=== PATIENT | male | born 1995 | race African-American/Black ===

== ENCOUNTER 2020-07-04 22:41 | Emergency (ER) | payer SELFPAY ==
[~2020-07-04] VITALS: Ht 170.2 cm; Wt 79.3 kg
[2020-07-04 23:03] VITALS: BP 156/100
--- NOTE | 2020-07-04 23:04 | PHYS DOC ---
General Adult EDM: Chief Complaint: shortness of air HPI: HPI: Patient is a 24-year-old male presented to ER today for evaluation of trouble breathing and wheezing. Patient also has nonproductive cough since yesterday. Patient has history of asthma, he is currently not on any medication. Patient denies any fever, no known exposure to anybody who tested positive for COVID-19 Review of Systems: Review of Systems: Constitutional: Denies fever or chills Eyes: Denies change in visual acuity HENT: Denies nasal congestion or sore throat Respiratory: Positive for cough and shortness of breath Cardiovascular: Denies chest pain or edema GI: Denies abdominal pain, nausea, vomiting, bloody stools or diarrhea : Denies dysuria Musculoskeletal: Denies back pain or joint pain Integument: Denies rash Neurologic: Denies headache, focal weakness or sensory changes Endocrine: Denies polyuria or polydipsia Lymphatic: Denies swollen glands Psychiatric: Denies depression or anxiety Heart Score: Risk Factors: Risk Factors: DM, Current or recent (<one month) smoker, HTN, HLP, family history of CAD, obesity. Risk Scores: Score 0 - 3: 2.5% MACE over next 6 weeks - Discharge Home Score 4 - 6: 20.3% MACE over next 6 weeks - Admit for Clinical Observation Score 7 - 10: 72.7% MACE over next 6 weeks - Early Invasive Strategies Current Medications: Current Meds: Current Medications Medications (Trade) Dose Ordered Sig/Poli Start Time Stop Time Status Last Admin Dose Admin Albuterol/ Ipratropium (Duoneb) 3 ml 1X ONCE 07/04/20 23:00 07/04/20 23:01 UNV Prednisone (Prednisone) 60 mg 1X ONCE 07/04/20 23:00 07/04/20 23:01 UNV Physical Exam: PE: Constitutional: Well developed, well nourished, no acute distress, non-toxic appearance. [] HENT: Normocephalic, atraumatic, bilateral external ears normal, oropharynx moist, no oral exudates, nose normal. [] Eyes: PERRLA, EOMI, conjunctiva normal, no discharge. [] Neck: Normal range of motion, no tenderness, supple, no stridor. [] Cardiovascular:Heart rate regular rhythm, no murmur [] Lungs & Thorax: Bilateral breath sounds with wheezing to auscultation, no respiratory distress. Abdomen: Bowel sounds normal, soft, no tenderness, no masses, no pulsatile masses. [] Skin: Warm, dry, no erythema, no rash. [] Back: No tenderness, no CVA tenderness. [] Extremities: No tenderness, no cyanosis, no clubbing, ROM intact, no edema. [] Neurologic: Alert and oriented X 3, normal motor function, normal sensory function, no focal deficits noted. [] Psychologic: Affect normal, judgement normal, mood normal. [] Current Patient Data: Labs: Current Medications Medications (Trade) Dose Ordered Sig/Poli Route PRN Reason Start Time Stop Time Status Last Admin Dose Admin Albuterol/ Ipratropium (Duoneb) 3 ml 1X ONCE NEB 07/04/20 23:30 07/04/20 23:31 DC 07/04/20 23:05 Prednisone (Prednisone) 60 mg 1X ONCE PO 07/04/20 23:30 07/04/20 23:31 DC 07/04/20 23:11 EKG: EKG: [] Radiology/Procedures: Radiology/Procedures: chest xray was negative[] Course & Med Decision Making: Course & Med Decision Making Pertinent Labs and Imaging studies reviewed. (See chart for details) Patient was doing much better after breathing treatment. Patient will be discharged home Dragon Disclaimer: Shagufta Disclaimer: This electronic medical record was generated, in whole or in part, using a voice recognition dictation system. Departure Departure: Impression: Primary Impression: Asthmatic bronchitis with exacerbation Disposition: HOME/RESIDENCE PRIOR TO ADM Condition: IMPROVED Referrals: PCP,NO (PCP) please follow up with your family physician on Monday for reevaluation Patient Instructions: Asthma, Adult Additional Instructions: Thank you for visiting our Emergency Department. We appreciate you trusting us with your care. If any additional problems come up don't hesitate to return to visit us. Please follow up with your primary care provider so they can plan additional care if needed and know about the problem that you had. If symptoms worsen come back to the Emergency Department. Any concerning symptoms that start such as chest pain, shortness of air, weakness or numbness on one side of the body, running high fevers or any other concerning symptoms return to the ER. Scripts Albuterol Sulfate (PROAIR HFA INHALER) 8.5 Gm Hfa.aer.ad 2 PUFF IH PRN Q4-6HRS PRN for wheezing for 21 Days, #1 INHALER 0 Refills Prov: SLOANE PAYNE DO 07/04/20 Prednisone (PREDNISONE) 20 Mg Tablet 1 TAB PO DAILY for asthma for 10 Days, #10 TAB Prov: SLOANE PAYNE DO 07/04/20 Justification of Admission: Justification of Admission: Justification of Admission Dx: N/A SLOANE PAYNE DO Jul 04, 2020 23:04
[2020-07-04] MEDS ORDERED: IPRATRPIUM/ALBUTEROL 0.5/2.5MG 3 ML NEBU. NEB ONE (23:30)
[2020-07-04] MEDS ORDERED: predniSONE 20 MG TABLET PO ONE (23:30)
[2020-07-04] MEDS ORDERED: PRED20TA PO (23:46)
[2020-07-04] MEDS ORDERED: ALBU2.5V8 IH (23:46)
--- NOTE | 2020-07-05 07:24 | RAD ---
Chest PA and lateral: Reason for examination: Cough and shortness of breath. The heart size is normal. Mediastinum is unremarkable. Lung rae are clear. No acute bony abnormalities are seen. Impression: No acute cardiopulmonary disease. Electronically signed by: Violet Walker MD (07/05/2020 7:21 AM) EVITA
== END 2020-07-04 23:55 | disposition home or self-care (01) ==
LOC: ER 22:41
DX: J45.901 Unspecified asthma with (acute) exacerbation (principal)
CPT/HCPCS: 71046; 94640; 99283; J7512

== ENCOUNTER 2020-10-27 23:49 | Emergency (ER) | payer SELFPAY ==
[~2020-10-27] VITALS: Ht 170.2 cm; Wt 81.0 kg
[2020-10-27 23:49] VITALS: BP 135/81
[~2020-10-27 23:49] MED LIST: ALBU2.5V8 IH; PRED20TA PO
--- NOTE | 2020-10-28 00:44 | PHYS DOC ---
Past History Past Medical History: Asthma Past Surgical History: No Surgical History Alcohol Use: None Adult General Chief Complaint Chief Complaint: DEPRESSION HPI HPI Patient is a 25-year-old male with a past medical history significant for anxiety, depression and asthma who presents with a chief complaint of anxiety and depression. Upon arrival firstly to the emergency department patient stated he was having suicidal thoughts with a possible plan but was not sure. States dannielle cohen has talked to the guidance [facility] previously and is thinking about going back. Upon interview and evaluation patient stated that he has had thoughts about wanting to be for several years but actually never really thought about doing it or having a plan because he actually does not want to be , he just wants to be alive, happy and just wanted someone to talk to. States he wanted resources and information on somebody he could talk to and someone who could prescribe appropriate medications. Denies any recent traumas, illnesses, fevers, Covid/flu symptoms, drug use. On further questioning patient adamantly denies suicidal ideation, homicidal ideation and hallucinations and states he really just wants some resources to put him in the right direction to talk to somebody when he gets feeling anxious and depressed and some appropriate medications if needed. Review of Systems Review of Systems Review of systems otherwise unremarkable except noted in HPI. Allergies Allergies Allergies Coded Allergies Type Severity Reaction Last Updated Verified ibuprofen Allergy Intermediate Hives 07/04/20 Yes Physical Exam Physical Exam Constitutional: Well developed, well nourished, no acute distress, non-toxic appearance. [] HENT: Normocephalic, atraumatic, bilateral external ears normal, oropharynx moist, no oral exudates, nose normal. [] Eyes: PERRLA, EOMI, conjunctiva normal, no discharge. [] Neck: Normal range of motion, no tenderness, supple, no stridor. [] Cardiovascular:Heart rate regular rhythm, no murmur [] Lungs & Thorax: Bilateral breath sounds clear to auscultation [] Abdomen: Bowel sounds normal, soft, no tenderness, no masses, no pulsatile masses. [] Skin: Warm, dry, no erythema, no rash. [] Back: No tenderness, no CVA tenderness. [] Extremities: No tenderness, no cyanosis, no clubbing, ROM intact, no edema. [] Neurologic: Alert and oriented X 3, normal motor function, normal sensory f unction, no focal deficits noted. [] Psychologic: Patient does appear anxious but is cooperative, smiling and does joke around. Very pleasant man. Denies true SI, HI or hallucinations. States he does have some anxiety depression at baseline and just want some help. EKG EKG [] Radiology/Procedures Radiology/Procedures [] Heart Score Risk Factors: Risk Factors: DM, Current or recent (<one month) smoker, HTN, HLP, family history of CAD, obesity. Risk Scores: Risk Factors: DM, Current or recent (<one month) smoker, HTN, HLP, family history of CAD, obesity. Course & Med Decision Making Course & Med Decision Making Patient is a 25-year-old male who presents with anxiety, depression and interest in some resources which could help him manage his anxiety and depression Vital signs not concerning. Physical exam noted above. Had a long chat with patient who was very pleasant and cooperative, and smiling but did seem a little anxious. Patient adamantly denies true thoughts and feelings of suicide stating he does not really want to hurt himself he just wanted someone to talk to. Wanted some resources to find a long-term doctor there could help him get through his anxiety and depression it may prescribe some medication if need be. Patient offered a work-up in the emergency department if he truly felt suicidal or had any thoughts or plans at this and finding him an inpatient bed. Patient very grateful stating I just want some resources and some numbers to call. Tila martini given all the resources we have here in the emergency department on local physicians and Likely[facility] as well as [place]. Advised to start calling around first thing in the morning to try to get appointments made as soon as possible. Gave strict return precautions to the ED and made him understand that he is definitely welcome here in the ED if he has any those thoughts and feels like he needs admission. Patient grateful, verbalized understanding and agreed with plan of discharge and appreciated the resources. [] Dragon Disclaimer Dragon Disclaimer This electronic medical record was generated, in whole or in part, using a voice recognition dictation system. Departure Departure: Impression: Primary Impression: Anxiety Additional Impression: Depression Disposition: 01 DC HOME SELF CARE/HOMELESS Condition: GOOD Referrals: PCP,NO (PCP) Patient Instructions: Anxiety and Panic Attacks, [id number], Depression, Adult, Suicidal Feelings, How to Help Yourself Additional Instructions: Please read all the attached information. Please take the resources given to begin to call around first thing this morning to try to set up some appointments for yourself. As discussed in detail in the emergency department you are welcome here anytime if you begin to have true feelings of wanting to hurt yourself, anybody else or having any hallucinations please come back to the emergency department immediately and we will help you in any way that we can. Problem Qualifiers VINICIUS BARRIENTOS MD Oct 28, 2020 00:44
== END 2020-10-28 00:48 | disposition home or self-care (01) ==
LOC: ER 23:49
DX: F41.9 Anxiety disorder, unspecified (principal); F32.9 Major depressive disorder, single episode, unspecified; J45.909 Unspecified asthma, uncomplicated; Z88.6 Allergy status to analgesic agent
CPT/HCPCS: 99281

== ENCOUNTER 2020-12-02 12:36 | Emergency (ER) | payer SELFPAY ==
[~2020-12-02] VITALS: Ht 170.2 cm; Wt 81.0 kg
[2020-12-02 12:38] VITALS: BP 122/78
[2020-12-02] MEDS ORDERED: IPRATRPIUM/ALBUTEROL 0.5/2.5MG 3 ML NEBU. NEB ONE ×2 (13:15)
[2020-12-02] MEDS ORDERED: DEXAMETHASONE 4 MG TABLET PO ONE (13:15)
--- NOTE | 2020-12-02 13:26 | PHYS DOC ---
Past History Past Medical History: Anxiety, Asthma, Depression Additional Past Medical Histor: ADHD, PTSD Past Surgical History: No Surgical History Alcohol Use: None General Adult EDM: Chief Complaint: COUGH HPI: HPI: 25-year-old male past medical history significant for asthma, presents to the ED with complaints of decreased sleep 2/2 coughing at night, "it's my asthma," that started on ( 6 days ago). One episode of vomiting while "coughing alot. " Reports intermittent, mild headaches and mild sore throat. Is not a tobacco smoker. Has never required hospitalization or intubation for his asthma. Last asthma exacerbation was over 1 year ago. No known history of Covid. No known h/o covid. States his sister was diagnosed with Covid on November 15 or and he did not take precautions while around her. Is requesting a Covid test. Reports his influenza is up-to-date. No associated fever, neck stiffness, eye discharge, earache, chest pressure, leg swelling hemoptysis or increased work of breathing. Lives in [facility]-reports no pcp. Later reported llq abd pain Review of Systems: Review of Systems: Constitutional: Denies fever or chills Eyes: Denies change in visual acuity or eye discharge HENT: Denies nasal congestion or sore throat Respiratory: Denies hemoptysis or increased work of breathing Cardiovascular: Denies chest pain or edema GI: Denies abdominal pain, nausea, bloody stools or diarrhea : Denies dysuria or hematuria Musculoskeletal: Denies back pain or joint pain Integument: Denies rash or diaphoresis Neurologic: Denies neck stiffness, focal weakness or sensory changes Endocrine: Denies polyuria or polydipsia Lymphatic: Denies swollen glands Psychiatric: Denies depression or anxiety Allergies: Allergies: Allergies Coded Allergies Type Severity Reaction Last Updated Verified ibuprofen Allergy Intermediate Hives 12/02/20 Yes Physical Exam: PE: Constitutional: Well developed, well nourished, no acute distress, non-toxic appearance. HENT: Normocephalic, atraumatic, Eyes: EOMI, conjunctiva normal, no discharge. Neck: Normal range of motion, supple, Cardiovascular: S1/2 present, regular rhythm Lungs & Thorax: Speaking in full sentences, bilateral equal chest rise, no tachypnea or increased work of breathing, mild expiratory wheezing in all 4 lung rae, no retractions Abdomen: soft, no tenderness, Skin: Warm, dry, no erythema, no rash. [] Back: No tenderness, no CVA tenderness. [] Extremities: No tenderness, no cyanosis, no lower extremity edema Neurologic: Alert and oriented X 3, normal motor function, normal sensory function, no focal deficits noted. [] Psychologic: Affect normal, judgement normal, mood normal. [] Current Patient Data: Vital Signs: Vital Signs Date Time Temp Pulse Resp B/P (MAP) Pulse Ox O2 Delivery O2 Flow Rate FiO2 12/02/20 12:38 98.4 76 18 122/78 (93) 98 Room Air EKG: EKG: [] Radiology/Procedures: Radiology/Procedures: []IMAGING REPORT Signed PATIENT: TOMAS REZA ACCOUNT: [id number] : 1995 LOCATION: ER AGE: 25 SEX: M EXAM STATUS: REG ER ORD. PHYSICIAN: CABRERA SOLOMON DO REASON: asthma PROCEDURE: CHEST AP ONLY INDICATION: Reason: asthma / Spl. Instructions: / History: COMPARISON: None. FINDINGS: Single view of chest obtained. No focal airspace consolidation. Cardiomediastinal contour unremarkable. No acute osseous abnormality. IMPRESSION: * No focal airspace consolidation or edema. Electronically signed by: Vandana Lopez MD (12/02/2020 1:32 PM) [id number] DICTATED AND SIGNED BY: VANDANA LOPEZ MD DATE: 12/02/20 1330 CC: PCP,NO; CABRERA SOLOMON DO ~MTH0 0 Heart Score: Risk Factors: Risk Factors: DM, Current or recent (<one month) smoker, HTN, HLP, family history of CAD, obesity. Risk Scores: Score 0 - 3: 2.5% MACE over next 6 weeks - Discharge Home Score 4 - 6: 20.3% MACE over next 6 weeks - Admit for Clinical Observation Score 7 - 10: 72.7% MACE over next 6 weeks - Early Invasive Strategies Course & Med Decision Making: Course & Med Decision Making Pertinent Labs and Imaging studies reviewed. (See chart for details) COVID-19 CRITERIA: The patient was evaluated during the global COVID-19 pandemic, and that diagnosis was suspected/considered upon their initial presentation. Their evaluation, treatment and testing was consistent with current guidelines for patients who present with complaints or symptoms that may be related to COVID-19. Concern for mild asthma exacerbation in a well-appearing male w/well controlled asthma, in no respiratory distress. Is a PUI, covid test pending. Chest x-ray []. Will discharge home with strict ED return precautions were given for increased work of breathing, worsening difficulties breathing, respiratory distress, chest pain or neurologic deficits. Encouraged urgent outpatient follow-up with PMD and pulmonology as needed. Life-threatening processes were considered but are low suspicion at this time, given history, physical exam and ED workup. Pt was educated on all prescription medications and adverse effects. All patient's questions were answered and pt was stable at time of discharge. Life/limb-threatening differential includes but is not limited to, foreign body, infection/sepsis, congestive heart failure or pulmonary edema, lung cancer intrathoracic mass, bronchoconstriction, asthma/COPD/lung disease exacerbation, pneumothorax or hemothorax, pulmonary emboli, autoimmune/neurologic disease or toxidrome. I spoken with the patient and her caregivers. I explained the patient's condition, diagnoses and treatment plan based on the information available to me at this time. I have answered the patient and her caregiver's questions and addressed any concerns. The patient and her caregivers have a good understanding of patient's diagnosis, condition and treatment plan as can be expected at this point. Vital signs have been stable. Patient's condition is stable and appropriate for discharge from the emergency department. Patient will pursue further outpatient evaluation with primary care physician or other designated or consulting physician as outlined in the discharge instructions. The patient and/or caregivers are agreeable to this plan of care and follow-up instructions have been explained in detail. The patient and/or caregivers have received these instructions in written form and have expressed an understanding of the discharge instructions. The patient and/or caregivers are aware that any significant change of condition or worsening of symptoms should prompt immediate return to this or the closest emergency department or call to 911. Shagufta Disclaimer: Shagufta Disclaimer: This electronic medical record was generated, in whole or in part, using a voice recognition dictation system. Departure Departure: Impression: Primary Impression: Person under investigation for COVID-19 Additional Impression: Mild asthma exacerbation Disposition: 01 DC HOME SELF CARE/HOMELESS Condition: STABLE Referrals: PCP,NO (PCP) FOLLOW UP WITH FAMILY MEDICINE: Complete [facility], [facility] [address] [place] [address] OR Replaced By [facility] [address] [facility], Patient Instructions: Asthma, Adult Additional Instructions: FOLLOW UP WITH: [facility] Address: [address] [facility] [address] [place] [address] Return to ED immediately if your oxygen level drops below 90% (purchase a pulse oximetry at a medical supply store), difficulties breathing including rapid br eathing or increased work of breathing (skin sucking under ribs), chest pain or stroke-like symptoms (facial droop, speech changes, arm/leg weakness). You have been tested for or diagnosed with COVID-19. It is an infection caused by a new type of coronavirus. COVID-19 will cause cold-like or mild flu symptoms in most. It can cause more severe symptoms like problems breathing in some. There is no treatment for COVID-19. The body will clear the infection over time. Self-care will help to ease discomfort. Steps to Take: Self-Care Rest as needed. Healthy habits may help you feel better. Steps include: Choose healthy foods including fruits and vegetables. Drink water throughout the day. Get plenty of sleep each night. If you smoke, try to quit. It may ease breathing. Avoid alcohol. Keep Others Healthy The virus can spread to others. Droplets are released every time you sneeze or c ough. The droplets can get into the mouth, nose, or eyes of people near you and lead to infection. To lower the chances of spreading COVID-19 to others: Stay at home until your doctor has said it is safe to leave. If you tested positive this will mean staying isolated until both of the following are true: At least 7 days have passed since the start of illness. You are free of fever for at least 72 hours without the use of medicine. During this time: - Avoid public areas, events, or transportation. Do not return to work or school until your doctor has said it is safe to do so. - Call ahead if you need to go to a medical center. Let them know you may have COVID-19. It will help them guide you where to go. They may also ask you to wear a facemask when you come to the office. - If you call for emergency medical services, let them know you may have COVID- 19. While at home: - Try to avoid close contact with others. Stay about 6 feet away. - If possible, spend most of your time in a separate room from others. - Use a face mask if you will be in close contact with others such as sharing a room or vehicle. - Have someone wipe down common surfaces in the home. Use household community resource officer every day on areas like doorknobs, counters, or sinks. - Cough or sneeze into a tissue. Throw the tissue away right after use. If a tissue is not available, cough or sneeze into your elbow. - Wash your hands often. Wash them after sneezing or coughing. Use soap and water and wash for at least 20 seconds. Alcohol based hand hand bobbin cleaner can be used if soap and water is not available. - Do not prepare food for others. Avoid sharing personal items like forks, spoons, or toothbrushes. - Avoid close contact with pets while you are sick. There is no evidence of the virus passing to pets. This is a safety step until more is known about this virus. Isolation can be frustrating. Social interaction can help. Keep in touch with friends and family through phone and tech options. You can still interact with others in your home, just keep a safe distance of about 6 feet. Follow-up: Your doctors office will check in with you to see if there are any changes in your health. You may be asked to keep track of symptoms to share with them. They will also let you know when you are clear to be in public again. Problems to Look Out For: Contact your doctor if your recovery is not going as you expect. Get emergency care if you have problems such as: - Trouble breathing - Nonstop chest pain or pressure - Changes in awareness, confusion, or problems waking - Lips or face have bluish color - Worsening of symptoms If you think you have an emergency, call for emergency medical services right away. As taken from [facility] Fluticasone Propionate (FLOVENT 44MCG HFA) 10.6 Gm Aer.w.adap 2 PUFF IH BID for asthma for 30 Days, #1 INHALER 2 Refills Prov: CABRERA SOLOMON DO 12/02/20 Prednisone (PREDNISONE) 50 Mg Tablet 50 MG PO DAILY for asthma for 4 Days, #4 TAB Prov: CABRERA SOLOMON DO 12/02/20 Albuterol Sulfate (VENTOLIN HFA INHALER) 18 Gm Hfa.aer.ad 1 PUFF IH PRN Q4HRS PRN for FOR ASTHMA, #1 INHALER 0 Refills Prov: CABRERA SOLOMON DO 12/02/20 CABRERA SOLOMON DO Dec 02, 2020 13:26
--- NOTE | 2020-12-02 13:34 | RAD ---
INDICATION: Reason: asthma / Spl. Instructions: / History: COMPARISON: None. FINDINGS: Single view of chest obtained. No focal airspace consolidation. Cardiomediastinal contour unremarkable. No acute osseous abnormality. IMPRESSION: * No focal airspace consolidation or edema. Electronically signed by: Thang Jha MD (12/02/2020 1:32 PM) [id number]
[2020-12-02] MEDS ORDERED: PRED50TA PO (15:07)
[2020-12-02] MEDS ORDERED: ALBU2.5V8 IH (15:07)
[2020-12-02] MEDS ORDERED: FLUT10.6 IH (15:07)
== END 2020-12-02 15:12 | disposition home or self-care (01) ==
LOC: ER 12:36
DX: J45.901 Unspecified asthma with (acute) exacerbation (principal); Z20.822 Contact with and (suspected) exposure to COVID-19; Z88.8 Allergy status to other drugs, medicaments and biological substances
CPT/HCPCS: 71045; 94640; 99284; C9803; J8540; U0003

== ENCOUNTER 2020-12-07 02:26 | Emergency (ER) | payer SELFPAY ==
[~2020-12-07] VITALS: Ht 170.2 cm; Wt 83.3 kg
[~2020-12-07 02:26] MED LIST changes: +FLUT10.6 IH; +PRED50TA PO
--- NOTE | 2020-12-07 02:31 | PHYS DOC ---
Past History Past Medical History: Anxiety, Asthma, Depression Additional Past Medical Histor: ADHD, PTSD Past Surgical History: No Surgical History Alcohol Use: None General Adult HPI: HPI: ".. I fracture this Lt lower tooth in the back the other day.. and now it is really hurting.. . I took some tylenol the other day.. and it did not help.. I even took some ibuprofen but it is still killing me... " Patient is a 25 year old male who presents with above hx and complaints bilateral impacted wisdom teeth at 32 and 17. Does appear his fractured molar 17 as well as 18 on the left.. Have exposed dentin. There is some peridental swelling. No trismus. No history immunosuppression. No history of travel. No history of other medical issues. Patient has not arranged for follow-up with a dental practice or oral surgery. Review of Systems: Review of Systems: Constitutional: Denies fever or chills Eyes: Denies change in visual acuity HENT: Denies nasal congestion or sore throat . Complains of severe dental pain Respiratory: Denies cough or shortness of breath Cardiovascular: Denies chest pain or edema GI: Denies abdominal pain, nausea, vomiting, bloody stools or diarrhea : Denies dysuria Musculoskeletal: Denies back pain or joint pain Integument: Denies rash Neurologic: Denies headache, focal weakness or sensory changes Endocrine: Denies polyuria or polydipsia Lymphatic: Denies swollen glands Psychiatric: Denies depression or anxiety Family History: Family History: Noncontributory to presentation Current Medications: Current Meds: See nursing for home meds Allergies: Allergies: Allergies Coded Allergies Type Severity Reaction Last Updated Verified ibuprofen Allergy Intermediate Hives 12/02/20 Yes Physical Exam: PE: Constitutional: Well developed, well nourished, reports acute distress, non- toxic appearance. [] HENT: Normocephalic, atraumatic, bilateral external ears normal, oropharynx moist, no oral exudates, nose normal. [] Does have dental caries. Does have gi ngivitis. Does have impacted wisdom teeth. Does have a fracture of tooth 17 and damage to tooth 18. Eyes: PERRLA, EOMI, conjunctiva normal, no discharge. [] Neck: Normal range of motion, no tenderness, supple, no stridor. [] Cardiovascular:Heart rate regular rhythm, no murmur [] Lungs & Thorax: Bilateral breath sounds equal apex with scattered wheezes on auscultation [] Abdomen: Bowel sounds normal, soft, no tenderness, no masses, no pulsatile masses. [] Skin: Warm, dry, no erythema, no rash. Tattoos Back: No tenderness, no CVA tenderness. [] Extremities: No tenderness, no cyanosis, no clubbing, ROM intact, no edema. [] Neurologic: Alert and oriented X 3, normal motor function, normal sensory function, no focal deficits noted. [] Psychologic: Affect anxious, judgement normal, mood normal. [] EKG: EKG: [] Radiology/Procedures: Radiology/Procedures: [] Heart Score: Risk Factors: Risk Factors: DM, Current or recent (<one month) smoker, HTN, HLP, family history of CAD, obesity. Risk Scores: Score 0 - 3: 2.5% MACE over next 6 weeks - Discharge Home Score 4 - 6: 20.3% MACE over next 6 weeks - Admit for Clinical Observation Score 7 - 10: 72.7% MACE over next 6 weeks - Early Invasive Strategies Course & Med Decision Making: Course & Med Decision Making Pertinent Labs and Imaging studies reviewed. (See chart for details) Take Tylenol and ibuprofen as needed for pain. Try using sugarless gum over the fractured molar. Must follow-up with dentist or oral surgeon. Nothing we do in the emergency room tonight will fix the underlying cause of pain. Must see an oral surgeon or dentist to remove tooth 17 and possibly 18. Patient take Keflex 500 mg 3 times a day. If financial is an issue consider following up at the [facility] dental [facility] or oral surgery clinic. Also check other locations for free dental care. Must follow-up. Rinse mouth with peroxide after eating to remove food particles from the fractured tooth.. Impression: 1. Dental pain 2. Dental caries 3. Fractured molar #17 and 18 4. impacted molars [] Dragon Disclaimer: [place] Disclaimer: This electronic medical record was generated, in whole or in part, using a voice recognition dictation system. Departure Departure: Referrals: PCP,NO (PCP) Scripts Cephalexin (KEFLEX) 750 Mg Capsule 1 CAP PO TID for dental infection for 10 Days, #30 CAP 0 Refills Prov: MARTHA JAIME MD 12/07/20 [place] Disclaimer This chart was dictated in whole or in part using Voice Recognition software in a busy, high-work load, and often noisy Emergency Department environment. It may contain unintended and wholly unrecognized errors or omissions. MARTHA JAIME MD Dec 07, 2020 02:31
[2020-12-07 02:36] VITALS: BP 120/81
[2020-12-07] MEDS ORDERED: CEPH750C9 PO (02:52)
[2020-12-07] MEDS ORDERED: KETOROLAC 60 MG/2 ML VIAL. IM ONE (03:30)
[2020-12-07] MEDS ORDERED: CEPHALEXIN 250 MG CAPSULE PO ONE (03:30)
== END 2020-12-07 03:18 | disposition home or self-care (01) ==
LOC: ER 02:26
DX: S02.5XXA Fracture of tooth (traumatic), initial encounter for closed fracture (principal); K01.1 Impacted teeth; K02.9 Dental caries, unspecified; J45.909 Unspecified asthma, uncomplicated; F90.9 Attention-deficit hyperactivity disorder, unspecified type; F43.10 Post-traumatic stress disorder, unspecified; X58.XXXA Exposure to other specified factors, initial encounter; Y93.89 Activity, other specified; Y92.89 Other specified places as the place of occurrence of the external cause; Y99.8 Other external cause status
CPT/HCPCS: 96372; 99283; J1885